=== PATIENT | male | born 1950 | race Caucasian/White ===

== ENCOUNTER 2022-05-06 15:18 | Outpatient (CLI) | payer MEDICARE, BC, SELFPAY ==
[2022-05-06 09:12] LABS: Albumin* 4.5 g/dL (3.3-5.0); Chloride* 105 mmol/L (96-114); Potassium* 4.5 mmol/L (3.6-5.1); Sodium* 139 mmol/L (135-149)
[2022-05-06 09:14] LABS: Cholesterol* 201 mg/dL (90-199)
[2022-05-06 09:15] LABS: Alanine Aminotransferase* 40 U/L (4-50); Alkaline Phosphatase* 76 U/L (40-150); Aspartate Amino Transferase* 20 U/L (12-35); Bilirubin Total* 0.7 mg/dL (0.1-1.5); Blood Urea Nitrogen* 18 mg/dL (7-30); Carbon Dioxide* 24 mmol/L (20-32); Creatinine* 0.8 mg/dL (0.5-1.5); Estimated Glomerular Filt Rate 94 ml/min; Glucose* 116 mg/dL (60-115); Total Protein* 7.5 g/dL (6.0-8.3); Triglycerides* 162 mg/dL (40-149)
[2022-05-06 09:16] LABS: Calcium* 9.1 mg/dL (8.4-10.6); HDL Cholesterol* 55 mg/dL (>=40); LDL Cholesterol Calculated 114 mg/dL (<100)
[2022-05-06 09:46] LABS: PSA Screen* 1.11 ng/mL (0.10-4.00)
== END 2022-05-06 15:19 | disposition home or self-care (01) ==
PROVIDERS: PCP Internal Medicine; Visit Provider Internal Medicine
DX: E78.5 Hyperlipidemia, unspecified (principal); N52.9 Male erectile dysfunction, unspecified; Z12.5 Encounter for screening for malignant neoplasm of prostate
CPT/HCPCS: 80053; 80061; 84153

== ENCOUNTER 2023-05-25 07:49 | Outpatient (CLI) | payer MEDICARE, BC, SELFPAY | END 2023-05-25 07:50 | disposition home or self-care (01) | LOC: NFLDREF 05-28 12:25 | PROVIDERS: PCP Internal Medicine; Referring Provider Internal Medicine; Visit Provider Internal Medicine | DX: E78.5 Hyperlipidemia, unspecified (principal); Z13.9 Encounter for screening, unspecified; Z12.5 Encounter for screening for malignant neoplasm of prostate | CPT/HCPCS: 80053; 80061; 84153 ==

== ENCOUNTER 2023-08-19 07:32 | Outpatient (CLI) | payer MEDICARE, BC, SELFPAY ==
--- OUTSIDE RECORDS SUMMARY | 2023-08-20 05:46 | XMS_ITS | Clinical Summary ---
Author Name Unknown Organization [facility] Address [place], [place] [address] Care Team Providers Care Golf Club Manager Name Role Phone Noe Cornelius MD Primary Care Provider Allergies Active Allergy Reactions Criticality Noted Date Comments Penicillins *Unknown - Childhood Rxn 08/21/2011 Medications Medication Sig Dispensed Refills Start Date End Date Status simvastatin (ZOCOR) 10 mg tablet Take 1 tablet by mouth at bedtime. 0 08/21/2011 Active fexofenadine (MELVA) 180 mg tablet Take 1 tablet by mouth once daily with a meal. 0 11/13/2011 Active Active Problems Problem Noted Date Diagnosed Date Old L2 Burst fracture 08/21/2011 L5-S1 disk herniation 08/21/2011 Lumbar radiculopathy 08/21/2011 S/P lumbar L1-L3 fusion 08/21/2011 Lumbar facet arthropathy below the fusion 2011 Social History Tobacco Use Types Packs/Day Years Used Date Smoking Tobacco: Never Smokeless Tobacco: Never Tobacco Cessation:Counseling Given: Yes Alcohol Use Standard Drinks/Week Comments Not Asked 0 (1 standard drink = 0.6 oz pur e alcohol) Social Connections Answer Date Recorded Frequency of Communication with Friends and Fami ly Not on file 07/02/2021 Financial Resource Strain Answer Date R ecorded Difficulty of Paying Living Expenses Not on file 07/02/2021 Difficulty of Paying Living Expenses Not on file 07/02/2021 Sex and Gender Information Value Date Recorded Sex Assigned at Not on file Gender Identity Not on file Sexual Orientation Not on file Obstetrics History Last Filed Vital Signs Vital Sign Reading Time Taken Comments Blood Pressure 153/83 08/23/2019 9:45 AM GRANTS AND CONTRACTS ASSISTANT Pulse 81 08/23/2019 9:45 AM GRANTS AND CONTRACTS ASSISTANT Temperature 36.5 ??C (97.7 ??F) 08/23/2019 9:45 AM CS T Respiratory Rate - - Oxygen Saturation 95% 08/23/2019 9:45 AM GRANTS AND CONTRACTS ASSISTANT Inhaled Oxygen Concentration - - Weight 90.4 kg (199 lb 6.4 oz) 08/23/2019 9:45 A M GRANTS AND CONTRACTS ASSISTANT Height 172.7 cm (5' 7.99) 08/23/2019 9:45 AM CS T Body Mass Index 30.33 08/23/2019 9:45 AM GRANTS AND CONTRACTS ASSISTANT Plan of Treatment Health Maintenance Due Date Last Done Comments COVID-19 vaccine series (#1) 06/10/1950 Tdap 1960 Depression screening for age 12+ 1961 Hepatitis C screening for age 18-79 12/10/1967 Tetanus booster 1969 Colonoscopy through age 75 1994 Lipids for age 45-75 1994 Zoster (shingles) series for age 50+ (1 of 2) 12/10/19 00 Medicare Wellness for age 65+ 2014 Pneumococcal series for age 65+ (1 of 1 - PCV) 015 BMI (ht and wt on same day) for age 18+ 08/23/2020 0 08/23/2019 Influenza for age 65+ 03/12/2023 Care Teams Golf Club Manager Relationship Specialty Start Date End Date Noe Cornelius MD [address] [place] [address] PCP - General 08/10/11
== END 2023-08-19 07:33 | disposition home or self-care (01) ==
LOC: NFLDREF 08-20 05:44
PROVIDERS: PCP Internal Medicine; Referring Provider Internal Medicine; Visit Provider Internal Medicine
DX: E78.5 Hyperlipidemia, unspecified (principal); Z13.6 Encounter for screening for cardiovascular disorders; Z12.5 Encounter for screening for malignant neoplasm of prostate
CPT/HCPCS: 80053; 80061; G0103

== ENCOUNTER 2023-09-17 09:00 | Outpatient (CLI) | payer MEDICARE, BC, SELFPAY ==
--- NOTE | 2023-09-17 10:00 | P.ANES_ITS ---
Anesthesia Charges Start Date/Time Anesthesia Start Date: 09/17/23 Anesthesia Start Time: 09:33 Stop Date/Time Anesthesia Stop Date: 09/17/23 Anesthesia Stop Time: 09:56 Summary Extremes of Age - Over 70 or under 1: FLY RAISER LOCKSTITCH
--- NOTE | 2023-09-17 10:53 | W.ANESCHARGE ---
Anesthesia Charges Start Date/Time Anesthesia Start Date: 09/17/23 Anesthesia Start Time: 09:33 Stop Date/Time Anesthesia Stop Date: 09/17/23 Anesthesia Stop Time: 09:56
--- NOTE | 2023-09-17 10:54 | W.ANESCHARGE ---
Anesthesia Charges Start Date/Time Anesthesia Start Date: 09/17/23 Anesthesia Start Time: 09:33 Stop Date/Time Anesthesia Stop Date: 09/17/23 Anesthesia Stop Time: 09:56 Summary Extremes of Age - Over 70 or under 1: MDA
== END 2023-09-17 09:01 | disposition home or self-care (01) ==
PROVIDERS: PCP Internal Medicine; Visit Provider Internal Medicine
DX: Z12.11 Encounter for screening for malignant neoplasm of colon (principal); K63.5 Polyp of colon; Z86.010 Personal history of colon polyps
CPT/HCPCS: 00811; 45380; 88305; 99100; J2704

== ENCOUNTER 2024-09-04 08:40 | Outpatient (CLI) | payer MEDICARE, BC, SELFPAY | END 2024-09-04 08:41 | disposition home or self-care (01) | LOC: NFLDREF 09-06 05:25 | PROVIDERS: PCP Internal Medicine; Referring Provider Internal Medicine; Visit Provider Internal Medicine | DX: E78.5 Hyperlipidemia, unspecified (principal); R73.9 Hyperglycemia, unspecified; Z12.5 Encounter for screening for malignant neoplasm of prostate | CPT/HCPCS: 80053; 80061; G0103 ==

== ENCOUNTER 2024-11-22 09:45 | Outpatient (RCR) | payer MEDICARE, BC, SELFPAY ==
--- NOTE | 2024-10-10 13:47 | PT.OPEX ---
PT [facility] PT [facility] Out[facility] Eval Start: 10/10/24 07:29 Freq: Status: Active Protocol: Document 10/10/24 07:30 CRP (Rec: 10/10/24 13:41 CRP [id number]) E-signed By Maulik Livingston PT Physical Therapy Outpatient Evaluation Insurance Information Recert Due Date 01/08/25 Insurance Name Medicare B Medical Diagnosis Back pain Referring MD Dr Cornelius Subjective Preferred Name Nikita Subjective Pt reports he cannot walk very far. Bilateral low back pain . Within a half hour he has to sit. Gets very painful. Within 100 yrds of walking he will already note soreness. Standing in one place also causes soreness but not as bad as walking. As of 5-10 years ago he had a bad onset of LBP that he needed an injection to help. This did clear up and he got back to running as well as being able to put addition on his home. 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 This episode has been a couple of years and is worsened more recently. Does do bird dog, cat/cow, planks, push ups, prone press ups - he has held on prone press ups secondary to painful cracking sensation. Back feels fine sitting. More recently he has been having some LBP when lying on his L side. No LE pain. No LE weakness. No LE tingling. Mornings are pretty good when getting up out of bed. Pain Comments 02/18 Current Work Status Retired Objective Other/Pertinent Objective Posture: Flattened lumbar spine. Does lack full hip extension. Trunk ROM: Flex WNL, Ext piedad dec with LBP. R SB mod/piedad dec with ipsi pain, L SB mod/ piedad dec with contra stretch, rotation mod/piedad dec bilat with thoracic spine pain HIp ROM: WNL bilat flex, ER, IR. Bilat hip ext lacks 5 degrees from neutral, L hip abd 23 deg, R 20 deg SLR: Negative MMT: myotomes WNL. Abdominal 3/5. Bilat hip abd 4-/5. Segmental testing: lower lumbar spine hypomobile into ext and bilat SB Functional Test Performed & Score Oswestry 24 Assessment Assessment/Impression Pt presents to the clinic with persistent LBP that is most aggravated with walking. Pts presentation shows painful loss of lumbar spine ROM that is exacerbated by decreased hip ROM, abdominal weakness and hip weakness. Skilled PT is necessary to incorporate ther ex, nm edmond, manual therapy and pt education to address impairments at both the hips and lumbar spine and improve functional mobility. Primary Functional Limitations Walking Standing Sleep Plan of Care Rehabilitation Potential Excellent Physical Therapy Goals 1. Pt will be independent with HEP in 8 weeks. 2. Pt will work in shop without c.o pain in 10 weeks. 3. Pt will walk 30 minutes for exer with 80% decrease in pain in 12 weeks. Coordination/Communication With Referral Source Treatment Plan/Direct Interventions Joint Mobilization,Manual Therapy,Neuromuscular Re-ed, Self-Care/Home Management, Therapeutic Activities, Therapeutic Exercises Frequency/Duration 1-2x/wk for 12 weeks Patient Will Be Discharged From Therapy Completion of LTG(s),Skills Plateau,Independent w/HEP, Independently Progressing Evaluation Billing Untimed Code Treatment Minutes 40 Complexity Moderate Certification Information Initial Certification Date 10/10/24 Ending Certification Date 01/08/25 Provider Signature Required Yes Provider Signature Shows Agreement With POC & Medical Necessity Physician NPI Number Write NPI# Here Physician Comment/Change : Physician Signature & Date Requested Please Sign/Date Here
== END 2025-03-22 23:59 | disposition home or self-care (01) ==
PROVIDERS: PCP Internal Medicine; Visit Provider Internal Medicine
DX: M54.9 Dorsalgia, unspecified (principal); Z51.89 Encounter for other specified aftercare
CPT/HCPCS: 97110; 97140; 97162

== ENCOUNTER 2025-01-03 07:49 | Outpatient (CLI) | payer MEDICARE, BC, SELFPAY ==
--- OUTSIDE RECORDS SUMMARY | 2024-11-20 15:00 | XMS_ITS | Encounter Summary ---
Author Organization [facility] Address [address] [place] [address] Care Team Providers Care Top Lift And Automatic Window Repairer Name Role Phone Unavailable Primary Care Provider Unavailabl e Reason for Referral * Outpatient (Routine) - Authorized Specialty Diagnoses / Procedures Referred By Abimael hendricks Referred To Contact Diagnoses After Cataract Membrane Vision Obscured Bilateral Procedures Yag Capsulotomy - OU - Both Eyes Pasha Skinner M.D. [address] [place] [address] Phone: tel: fax: [facility] Referral ID Status Reason Start Date Expiration Date V isits Requested Visits Authorized [id number] Authorized 11/20/2024 02/20/2026 1 1 Reason for Visit * Reason Comments Blurred Vision * Appointment Request (Routine) - Closed Specialty Diagnoses / Procedures Referred By Abimael hendricks Referred To Contact Ophthalmology Referral ID Status Reason Start Date Expiration Date Visits Re quested Visits Authorized [id number] Closed 11/15/2024 02/15/2026 1 1 Encounter Details Date Type Department Care Team (Late st Contact Info) Description 11/20/2024 3:00 PM CDT Office Visit Department of Ophthalmology in [place], [place] [address] [place] [phone] Pasha Skinner M.D. [address] [place] [phone] After Cataract Membrane Vision Obscured Bilateral (Primary Dx); Intraocular Lens Implant Status Post Discharge Disposition: Home or Self Care Social History Tobacco Use Types Packs/Day Years Used Date Smoking Tobacco: Never Smokeless Tobacco: Never Alcohol Use Standard Drinks/Week Comments Yes 5 (1 standard drink = 0.6 oz pur e alcohol) Sex and Gender Information Value Date Recorded Sex Assigned at Not on file Legal Sex Male 12:47 PM FINANCIAL ADVISOR Gender Identity Not on file Sexual Orientation Not on file documented as of this encounter Progress Notes * Pasha Skinner M.D. - 11/20/2024 3:00 PM CDT Juan R Gavin was seen today for Blurred Vision #1 After Cataract Membrane Vision Obscured Bilateral #2 Intraocular Lens Implant Status Post Visually significant posterior capsule opacities in both eyes. Risks benefits alternatives of procedure were reviewed including inflammation, swelling, intra- ocular pressure elevation, intra-ocular lens instability, retinal tear detachment. Patient opted to proceed with laser capsulotomy, both eyestoday. PROCEDURE bilateral YAG capsulotomy SURGEON Slim Skinner M.D. ANESTHESIA TYPE Topical PRE-OPERATIVE DIAGNOSIS bilateral visually significant capsule opacification. POST-OPERATIVE DIAGNOSIS bilateral visually significant capsule opacification. COMPLICATIONS None. INDICATIONS: This patient presented with complaints of vision loss in bilateral eye(s) that affected the qualityof vision in the quality of the patient's life. The clinical examination demonstrated significant capsule opacification both eyes. It was therefore advised that the patient undergo bilateral yag capsulotomy. The risks benefits and alternatives to YAG capsulotomy were discussed including inflammation, intraocular pressure elevation, intraocular lens instability, and the risk of retinal detachment.A consent was obtained. DESCRIPTION OF PROCEDURE The patient's pupil(s) had been dilated and the patient received a drop of proparacaine and Iopidine right and left. The patient was brought to the YAG laser. The attention was 1st turned to the right eye. A total of 14 shots were required to clear the central capsule opacification without difficulty at a power of 3.2 mJ. The attention was then turned to the left eye. A total of 16 shots were required to clear the central capsule opacification without difficulty at a power of 3.2 mJ. The patient tolerated the procedure well. SPECIMENS None. ESTIMATED BLOOD LOSS None. The patient received education about expectations for postoperative recovery including the development of floaters. The patient will return to clinic in Dr. Adam Lucia, in 2-3 weeks for a post capsulotomy evaluation and manifest refraction with recheck. Letter dictated. documented in this encounter Plan of Treatment Not on file documented as of this encounter Procedures Procedure Name Priority Date/Time Associated Diagnosis Comments YAG CAPSULOTOMY - OU - BOTH EYES Routine 11/20/2024 4:43 PM CDT After Cataract Membrane Vision Obscured Bilateral documented in this encounter Results * Yag Capsulotomy - OU - Both Eyes (11/20/2024 4:43 PM CDT) Narrative Pasha Skinner M.D. - 11/20/2024 4:43 PM CDT Time Out Confirmed correct patient, procedure, site, and patient consented. Procedure Procedure was Capsulotomy. Right Eye Topical anesthesia was used. Anesthesia medications included Iopidine 0.5%, Proparacaine. Left Eye Topical anesthesia was used. Anesthesia medications included Iopidine 0.5%, Proparacaine. Laser Information Right Eye The type of laser was yag. Total spots was 4. The energy was 3.20 millijoules. Left Eye The type of laser was yag. Total spots was 16. The energy was 3.20 millijoules. Post-op The patient tolerated the procedure well. There were no complications. The patient received written and verbal post procedure care education. Notes Laser capsulotomy, both eyes. No complications. Pasah Skinner M.D. OPHTH CLINIC PROCEDURES Final Result documented in this encounter Visit Diagnoses Diagnosis After Cataract Membrane Vision Obscured Bilateral- Primary Intraocular Lens Implant Status Post documented in this encounter
--- NOTE | 2025-01-03 08:15 | CRLHL7_ITS ---
For Patients: As a result of the Century Cures Act, medical imaging exams and procedure reports are released immediately into your electronic medical record. You may view this report before your referring provider. If you have questions, please contact your health care provider. INDICATION: Back pain. TECHNIQUE: Multisequence multiplanar MRI of the lumbar spine without the use of intravenous contrast. COMPARISON: MRI lumbar spine dated 08/04/2019. FINDINGS: Accentuated upper thoracic kyphosis. Stable chronic L2 vertebral and L3 superior endplate compression fractures. No T1 hypointense infiltrative lesion. The conus medullaris terminates normally at the L1 level. The prevertebral soft tissues are unremarkable. T12-L1: No significant spinal canal or neural foraminal stenosis. L1-L2: Mild spinal canal stenosis. No significant neural foraminal narrowing. L2-L3: Mild spinal canal stenosis. No significant neural foraminal narrowing. L3-L4: Advanced facet joint arthrosis. No significant spinal canal stenosis. Similar mild bilateral neural foraminal narrowing. L4-L5: Advanced facet joint arthrosis. No significant spinal canal stenosis or right neural foraminal narrowing. Moderate left neural foraminal narrowing. L5-S1: Symmetric disc bulge with similar small broad superimposed central disc protrusion. Moderate facet joint arthrosis. Mild narrowing of the lateral recesses and mild-moderate bilateral neural foraminal narrowing. IMPRESSION: 1. Stable chronic L2 vertebral body fracture and L3 superior endplate compression fracture. 2. At L4-L5, similar moderate left neural foraminal narrowing. 3. At L5-S1, similar broad central disc protrusion, mild narrowing of the lateral recesses, and mild-moderate bilateral neural foraminal narrowing. Dictated by Miguel Mcknight MD @ 01/04/2025 1:23:48 PM (Electronically Signed)
--- OUTSIDE RECORDS SUMMARY | 2025-01-04 00:19 | XMS_ITS | Clinical Summary ---
Author Organization [facility] Address [address] [place] [address] Care Team Providers Care Technical Research Scientist Name Role Phone Unavailable Primary Care Provider Unavailabl e Source Comments Patient records contain information from all sites at [facility]. For routine questions regarding patient records, call [phone] during business hours, M-F 8:00 AM - 5:00 PM Central Time. Record requests for emergency care only can be directed to [phone] at any time.[facility] Allergies Active Allergy Reactions Criticality Noted Date Comments Penicillins Other (see comments) 08/21/2011 PENICILLINS, childhood allergy, patient unknown of reaction. Medications Advair Diskus 250-50 mcg/act diskus inhaler Inhale 1 puff 2 (two) times a day. 1 Active montelukast (SINGULAIR) 10 mg tablet Take 10 mg by mouth at bedtime. 1 Active flunisolide (NASALIDE) 25 mcg/spray (0.025%) nasal spray flunisolide 25 mcg/inh nasal spray See Instructions, inhale 2 puffs twice a day in both nostrils 4 Active simvastatin (ZOCOR) 10 mg tablet Take 10 mg by mouth at bedtime. 1 Active loratadine 10 mg capsule Take 1 tablet by mouth daily. 4 Active atorvastatin (Lipitor) 10 mg tablet Lipitor 10 mg oral tablet See Instructions, (new medication, patient notified by letter)1 TABLET DAILY 4 Active tadalafiL (Cialis) 10 mg tablet TAKE 1 TABLET BY MOUTH every day As Needed for sexual activity; administer approximately 30min before sexual activity; do not use more than 1 dose per 24hrs* 5 Active valsartan-hydr oCHLOROthiazid e (Diovan-HCT) 80-12.5 mg per tablet 5 Active Active Problems Problem Noted Date Diagnosed Date Hyperlipidemia 06/12/2021 Cataract Senile Nuclear Sclerosis Bilateral 04/11 Overview (04/29/2021): Added automatically from request for surgery [id number] Spondylosis Lumbar Without Myelopathy 08/21/2011 Radiculopathy Lumbar 08/21/2011 Other Intervertebral Disc Displacement Lumbar Re gion 08/21/2011 Encounters Date Type Department Care Team Description 11/20/2024 3:00 PM CDT Office Visit Department of Ophthalmology in [address] [phone] Pasha Skinner M.D. After Cataract Membrane Vision Obscured Bilateral (Primary Dx); Intraocular Lens Implant Status Post Discharge Disposition: Home or Self Care from Last 3 Months Immunizations Immunization Administration Dates Next Due Td (Adult), adsorbed 08/12/2004 Family History Medical History Relation Name Comments Anesthesia problems Neg Hx Cataracts Neg Hx Glaucoma Neg Hx Macular degeneration Neg Hx Retinal degeneration Neg Hx Retinal detachment Neg Hx Social History Tobacco Use Types Packs/Day Years Used Date Smoking Tobacco: Never Smokeless Tobacco: Never Alcohol Use Standard Drinks/Week Comments Yes 5 (1 standard drink = 0.6 oz pur e alcohol) Sex and Gender Information Value Date Recorded Sex Assigned at Not on file Legal Sex Male 12:47 PM MANAGER VALUATION Gender Identity Not on file Sexual Orientation Not on file Last Filed Vital Signs Vital Sign Reading Time Taken Comments Blood Pressure 142/95 07/02/2021 9:30 AM MANAGER VALUATION Pulse 70 07/02/2021 9:30 AM MANAGER VALUATION Temperature 36.5 C (97.7 F) 07/02/2021 9:30 AM MANAGER VALUATION Respiratory Rate 16 07/02/2021 9:30 AM MANAGER VALUATION Oxygen Saturation 97% 07/02/2021 9:30 AM MANAGER VALUATION Inhaled Oxygen Concentration - - Weight 94 kg (207 lb 3.7 oz) 04/29/2021 9:20 AM CDT Height 175 cm (5' 8.9) 04/29/2021 9:20 AM CDT Body Mass Index 30.69 04/29/2021 9:20 AM CDT Plan of Treatment Health Maintenance Due Date Last Done Comments CT Colonography 1949 Cologuard 1950 Colonoscopy 1950 Colorectal Cancer Screening 1950 Creatinine Level (Kidney Function Test) 1949 FIT 1949 Fasting Glucose for Diabetes Screening 1949 Hepatitis C Screening 1949 Lipid (Cholesterol) Screening 1949 Potassium Level 1949 Sodium Level 1949 COVID-19 Vaccine ( season) 2024 07/31/2021, 04/17/2021, 11/16/2020 Influenza Vaccine (#1) 2024 , 05/13/2022, 04/17/2021 Depression Screening (Annual PHQ-2) 07/12/2024 Fall Risk Screen (Annual) 07/12/2024 DTaP,Tdap,and Td Vaccines (3 - Td or Tdap) 05/13/2032 05/13/2022, 06/26/2013, 08/12/2004 Pneumococcal vaccine (50+ years) Completed 03/01/2018, 12/30/2017, 10/01/2016, Additional history exists Zoster Vaccines Completed 03/01/2018, 12/30/2017 RSV vaccine - (32-36 weeks) or 60+ years Completed 08/24/2023 IPV Vaccines Aged Out No longer eligi ble based on patient's age to complete this topic Medical Devices Implanted Type Area Rotary Shear Operator Device Identifier Shelf Expiration Date Model / Serial / Lot Acrysof Iq Toric Implanted:Qty : 1 on 07/02/2021 by Pasha Skinner M.D. at [facility] Ocular (Eye) Implant Right: Eye [employer] [id number] 01/25/2026 [id number] / [id number] / Acrysof Iq Toric Implanted:Qty : 1 on 06/18/2021 by Pasha Skinner M.D. at [facility] Ocular Lens Left: Eye [employer] [id number] 02/11/2026 [id number] / [id number] / Procedures Procedure Name Priority Date/Time Associated Diagnosis Comments YAG CAPSULOTOMY - OU - BOTH EYES Routine 11/20/2024 4:43 PM CDT After Cataract Membrane Vision Obscured Bilateral from Last 3 Months Results * Yag Capsulotomy - OU - Both Eyes (11/20/2024 4:43 PM CDT) Pasha Jennings M.D. - 11/20/2024 4:43 PM CDT Time [...] Notes Laser capsulotomy, both eyes. No complications. Pasha Skinner M.D. OPHTH CLINIC PROCEDURES Final Result from Last 3 Months Insurance MEDICARE [facility] Advance Directives For more information, please contact: [phone] * Full Code (Latest Code Status on File) Date Activated Date Inactivated Comments 06/18/2021 9:36 AM 06/18/2021 11:42 AM Question Answer Comments Full Code: Discussed
--- OUTSIDE RECORDS SUMMARY | 2025-01-04 00:19 | XMS_ITS | Clinical Summary ---
Author Organization [facility] Address [address] [place] [address] Care Team Providers Care Assessment Director Name Role Phone Noe Cornelius MD Primary Care Provider Allergies Active Allergy Reactions Criticality Noted Date Comments Penicillins *Unknown - Childhood Rxn 08/21/2011 Medications simvastatin (ZOCOR) 10 mg tablet Take 1 [...] at Not on file Legal Sex Male 7:52 AM BUS ATTENDANT Gender Identity Not on file Sexual Orientation Not on file Obstetrics History Last Filed Vital Signs Vital Sign Reading Time Taken Comments Blood Pressure 153/83 08/23/2019 9:45 AM BUS ATTENDANT Pulse 81 08/23/2019 9:45 AM BUS ATTENDANT Temperature 36.5 C (97.7 F) 08/23/2019 9:45 AM BUS ATTENDANT Respiratory Rate - - Oxygen Saturation 95% 08/23/2019 9:45 AM BUS ATTENDANT Inhaled Oxygen Concentration - - Weight 90.4 kg (199 lb 6.4 oz) 08/23/2019 9:45 A M BUS ATTENDANT Height 172.7 cm (5' 7.99) 08/23/2019 9:45 AM CS T Body Mass Index 30.33 08/23/2019 9:45 AM BUS ATTENDANT Plan of Treatment Health Maintenance Due Date Last Done Comments Tdap 1960 Depression screening for age 12+ 1961 Hepatitis C screening for ag e 18-79 12/10/1967 Tetanus booster 1969 Colonoscopy through age 75 1994 Lipids for age 45-75 1994 Pneumococcal series for age 50+ (1 of 1 - PCV) 12/10/1999 Zoster (shingles) series for age 50+ (1 of 2) 12/10/1999 Medicare Wellness for age 65+ 2014 BMI (ht and wt on same day) for age 18+ 08/23/2020 08/23/2019 COVID-19 vaccine series ( - 2023-25 season) 2024 RSV vaccine for adults or (1 - 1-dose 75+ series) 2024 Influenza Vaccine (Season Ended) 2025 Hepatitis B series for 19+ Aged Out N o longer eligible based on patient's age to complete this topic Insurance [place] ONLY Care Teams Assessment Director Relationship Specialty Start Date End Date Noe Cornelius MD [address] [place] [address] PCP - General 08/10/11
== END 2025-01-03 07:50 | disposition home or self-care (01) ==
LOC: MRI 07:51
PROVIDERS: PCP Internal Medicine; Visit Provider Internal Medicine
DX: M54.9 Dorsalgia, unspecified (principal); M51.26 Other intervertebral disc displacement, lumbar region; M51.27 Other intervertebral disc displacement, lumbosacral region
CPT/HCPCS: 72148

== ENCOUNTER 2025-03-27 09:07 | Outpatient (CLI) | payer MEDICARE, BC, SELFPAY | END 2025-03-27 09:08 | disposition home or self-care (01) | LOC: INJ CL 09:07 | PROVIDERS: PCP Internal Medicine; Visit Provider Family Medicine | DX: M54.16 Radiculopathy, lumbar region (principal) | CPT/HCPCS: 64483; J1100; Q9966 ==